=== PATIENT | female | born 2005 | race Caucasian/White ===

== ENCOUNTER 2024-09-20 12:27 | Emergency (ER) | payer OTHER, BC, SELFPAY ==
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
[2024-09-20 12:27] VITALS: BP 112/71; PULSE 90; RESP 16; TEMP 37.1; O2SAT 97
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
[2024-09-20] MEDS: IBUPROFEN 400 MG TABLET 800 MG PO (13:46)
--- OUTSIDE RECORDS SUMMARY | 2024-09-20 13:50 | XMS_ITS | Data Portability ---
Author Organization [place] [facility], zzDa rick Costa Address [address] [place] [address] Assessment No assessment recorded. Plan of Treatment Reminders Order Date Submit Date Provider Last Modified By Organization Details Last Modified Time Details Appointments None record ed. Lab None record ed. Referral None record ed. Procedures None record ed. Surgeries None record ed. Imaging None record ed. Medication Orders None record ed. Patient TargetsNo targets recorded. Patient InstructionsNo instructions recorded. Reason for Referral None Reported. Problems Name Problem SNOMED Code Status Onset Date Resolution Date Notes Provider Name and Address Organization Details Recorded Time Sore throat 185936891 Active Descriptio n: Sore throat Not Available [facility] 4 16:36:00 Irregular periods 56608975 Active Descriptio n: Irregular menses Not Available [facility] 4 16:36:00 Disturban ce of attention 68880210 Active 2023 Rosemarie Amaya MD [address], [place], [address] , [place] [facility] 4 22:36:37 Depressed mood 388460165 Active 2023 Rosemarie Amaya MD [address], [place], [address] , [facility] 4 22:36:48 Dizziness 588137359 Active 2023 Rosemarie Amaya MD [address], [place], [address] , [facility] 4 22:39:27 Generaliz ed headache 234078535 Active 2023 Rosemarie Amaya MD [address], [place], [address] , [facility] 4 22:39:31 Headache 67716512 Active 2023 Rosemarie Amaya MD [address], [place], [address] , [place] - [facility] 22:39:43 Dysmenorr kassi 924793488 Active 2023 Rosemarie Amaya MD [address], [place], [address] , [place] [facility] 22:42:41 Problem Notes None recorded. Medical Equipment None Reported. Allergies No known drug allergies Medications Name Sig Start Date Stop Date Status Note LastModified by Organization Details LastModified Time azithromy margarita 250 mg tablet TAKE 2 TABLETS BY MOUTH TODAY, THEN TAKE 1 TABLET DAILY FOR 4 DAYS DIRECTED 04/29 completed Not Available Not Available Not Available sulfameth oxazole 800 mg-trimet hoprim 160 mg tablet TAKE 1 TABLET BY MOUTH TWICE A DAY FOR 3 DAYS 04/29 completed Not Available Not Available Not Available amoxicill in 875 mg tablet 1 tablet Twice a day , Orally 2022 active Encounte r Date: 01/21/20 23 Status: 'Discont inued'; Not Available Not Available Not Available Claritin 1 tablet once daily active Encounte r Date: 09/28/19 Medicati onID: '[id number]'; Medicati onName: 'Clariti n'; ConceptT ype: 'NDC'; Status: 'Taking' ; Not Available Not Available Not Available multivita min 1 tablet Once a day , Orally active Encounte r Date: 09/28/19 Medicati onID: '[id number]'; Medicati onName: 'Multivi tamin'; ConceptT ype: 'NDC'; Status: 'Not-Jamir ing'; Not Available Not Available Not Available Vitals Date Recorded Body height Body mass index (BMI) Percentile per age and sex Body mass index (BMI) Body weight Body temperature Oxygen saturation Oxygen saturation in Arterial blood by Pulse oximetry Respiratory rate Heart rate Systolic blood pressure Diastolic blood pressure Provider Name and Address Organization Details Last Updated DateTime 4 165.1 cm 72 % 24 kg/m2 51203.7 4 g 97.6 [degF] 98 % 98 % 18 /min 72 /min 110 mm[Hg] 62 mm[Hg] Andria Cardona [place] - [facility] 15:31:08 Social History Question Answer Notes LastModified by Organizat ion Details LastModified Time Tobacco Smoking Status Never Smoker SocialHistor yQuestion: 'Tobacco Use/Smoking' ; SocialHistor yResponse: 'Are you a: nonuser'; Not Available [facility] 03/10/2024 04:03:40 What Is Your Level Of Alcohol Consumption? None SocialHistor yQuestion: 'Alcohol'; SocialHistor yResponse: 'Use Alcohol Currently No'; [email or web address] Information not available 03/10/2024 What Is Your Level Of Caffeine Consumption? Occasional [email or web address] Information not available 04/29/2024 How Much Tobacco Do You Chew? None [email or web address] Information not available 04/29/2024 In The 14 Days Before Symptom Onset, Have You Had Close Contact With A Laboratory-confi rmed COVID-19 While That Case Was Ill? No Information not available 04/29/2024 In The 14 Days Before Symptom Onset, Have You Had Close Contact With A Person Who Is Under Investigation For COVID-19 While That Person Was Ill? No [email or web address] Information not available 04/29/2024 Have You Been To An Area Known To Be High Risk For COVID-19? No Information not available 04/29/2024 What Is The Highest Grade Or Level Of School You Have Completed Or The Highest Degree You Have Received? DQ55470-3 [email or web address] Information not available 04/29/2024 Does Anyone Insult Or Talk Down To You? Rarely [email or web address] Information not available 04/29/2024 Does Anyone Physically Hurt You At Home? Never [email or web address] Information not available 04/29/2024 Does Anyone Scream Or Curse At You? Rarely [email or web address] Information not available 04/29/2024 Does Anyone Threaten/bully You With Harm? Never [email or web address] Information not available 04/29/2024 Sleep Habits I Try To Fall Asleep No Later Than 12:30 Every Night And Like To Get No Less Than 8 Hours [email or web address] Information not available 04/29/2024 Have You Ever Served In The ? No Information not available 04/29/2024 What Was The Date Of Your Most Recent Tobacco Screening? 04/29/2024 [email or web address] Information not available 04/29/2024 Do You Or Have You Ever Used Smokeless Tobacco? Never Used Smokeless Tobacco [email or web address] Information not available 04/29/2024 Do You Or Have You Ever Used Any Other Forms Of Tobacco Or Nicotine? No [email or web address] Information not available 04/29/2024 Sex: Unknown Functional Status None recorded. Mental Status None recorded. Family History Nothing Reported Notes:*Relative: Paternal Gr andmother*Problem: alive, lung cancerRelative: 'Paternal G M'; *Relative: Maternal Grandfather*Problem: aliveRelative: 'Maternal G F'; *Relative: Mother*Problem: alive, factor V Leiden *Relative: Father*Problem: alive *Relative: Maternal Grandmother*Problem: alive, hypothyroidism *Relative: Paternal Grandfather*Problem: aliveRelative: 'Paternal G F'; *Relative: Unspecified Relation*Problem: 1 brother(s) 2 sisters(s) - healthy Medical History No medical history recorded. Gynecological History Statement/Question Response Menses Monthly Y Sexually Active? Y Obstetrics History GPAL:G 0 P 0 0 0 0 Immunizations Vaccine Type Date Status Note Provider Nam e and Address Organization Details Recorded Time MMR 7 completed Not Available [facility] 02/10/2024 16:47:48 Hep B, adolescent or pediatric 7 completed Not Available [facility] 02/10/2024 16:47:48 Hep B, adolescent or pediatric 5 completed Not Available [facility] 02/10/2024 16:47:48 MMR 0 completed Not Available [facility] 02/10/2024 16:47:48 Hep B, adolescent or pediatric 5 completed Not Available [facility] 02/10/2024 16:47:49 IPV 5 completed Not Available [facility] 02/10/2024 16:47:49 IPV 5 completed Not Available [facility] 02/10/2024 16:47:49 IPV 9 completed Not Available [facility] 02/10/2024 16:47:49 IPV 5 completed Not Available [facility] 02/10/2024 16:47:49 Tdap 6 completed Not Available [facility] 02/10/2024 16:47:49 meningococcal MCV4, unspecified formulation 2 completed Not Available [facility] 02/10/2024 16:47:49 Influenza, split virus, quadrivalent, PF 2 completed Not Available [facility] 02/10/2024 16:47:49 DTaP, unspecified formulation 9 completed Not Available [facility] 02/10/2024 16:47:49 DTaP, unspecified formulation 5 completed Not Available [facility] 02/10/2024 16:47:50 DTaP, unspecified formulation 5 completed Not Available [facility] 02/10/2024 16:47:50 DTaP, unspecified formulation 5 completed Not Available [facility] 02/10/2024 16:47:50 varicella 0 completed Not Available [facility] 02/10/2024 16:47:50 varicella 7 completed Not Available [facility] 02/10/2024 16:47:50 pneumococcal polysaccharide PPV23 5 completed Not Available [facility] 02/10/2024 16:47:50 pneumococcal polysaccharide PPV23 5 completed Not Available [facility] 02/10/2024 16:47:50 pneumococcal polysaccharide PPV23 5 completed Not Available [facility] 02/10/2024 16:47:50 Hib (PRP-OMP) 7 completed Not Available [facility] 02/10/2024 16:47:51 Hib (PRP-OMP) 5 completed Not Available [facility] 02/10/2024 16:47:51 Hib (PRP-OMP) 5 completed Not Available [facility] 02/10/2024 16:47:51 Hep A, adult 7 completed Not Available [facility] 02/10/2024 16:47:51 meningococcal MCV4, unspecified formulation 6 completed Not Available [facility] 02/10/2024 16:47:51 DTaP, unspecified formulation 6 completed Not Available [facility] 02/10/2024 16:47:51 pneumococcal polysaccharide PPV23 7 completed Not Available [facility] 02/10/2024 16:47:51 Hep A, adult 6 completed Not Available [facility] 02/10/2024 16:47:51 Past Encounters Encounter ID Performer Location Encounter Start Date Encounter Closed Date Diagnosis/Indication Diagnosis SNOMED-CT Code Diagnosis ICD10 Code Diagnosis Note [id number] Rosemarie Amaya MD [facility] [address] [place] [address] 04/29/2024 15:27:13 04/29/2024 22:45:19 Disturbance of attention 56665943 R41.840 Endorses ADHD, depression and anxiety symptoms. Discussed natural ways to reduce stress and improve focus such as regular exercise, regular sleep pattern and regular diet. Discussed yoga, meditation . Recommende d counseling at school and neuro psych testing. Rolanda will discuss with parents and let me know if she would like to schedule testing here. Consider Atomoxetin e or treatment with SSRI and then stimulant therapy if testing confirms diagnoses. Depressed mood 822425057 F32.A see above Dizziness 741411800 R42 We discussed the importance of regular meals- do not skip breakfast and make sure getting plenty of protein in diet. If symptoms persist, will check labs. Headache 10032991 R51.9 Keep appointmen t with eye doctor and work on stress reduction. Adult [facility] th examination 444594648 Z00.00 Discussed importance of regular exercise and healthy diet.Recom mended gonorrhea/ chlamydia testing= patient declines at this time.She is not yet due for a pap smearPE 1 year Dysmenorrhea 258077924 N 94.6 She does not wish to start control. Recommende d 600 mg Ibuprofen every 6 hours 1-2 days prior to start of cycle or at first onset of cramps. Health Concerns Section Related Observation LastModified by Organization Detai ls LastModified Time None Recorded Concern Status LastModified by Organization Details LastModified Time None Recorded Advance Directives Directive None Recorded Payers Encounter Date Sequence Insurance Name Policy Number Policy Somers Covered Member ID Somers Member ID Guarantor Name 04/29/2024 [facility] - ALL PARTICIPANT - (MOVED-BILLED) [id number] Diony López [id number] Rolanda López Notes Date Note Type Note Provider Name and Address Organization Details Recorded Time 04/29/2024 text/html Here for routine PE and multiple concerns.She is not yet due for pap smear and declines gonorrhea/chlamydia testing.Immunizations : Flu shot not UTD.Has a lot of stress at college. [employer]- criminal justice/psych. GPA 3.0. To keep scholarship needs a 3.2. Professor accused her of using AI. Had to go through student grievance process. Had some financial stresses as well. Has kylie feeling more down and anxiosu. 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 Now, not as physically active. Easily distracted, forgets conversations. Reports a lot of procrastination and issues with time management. Adult ADHD rating positive.Hx recent headaches. Occurring once every other week= lasts for 3 days. Feels like pressure, sharp pain on sides. Has been working with eye doctor and needs to follow-up while home.Period cramps have been getting worse, using heating pads. 2 Ibuprofen every ever 8 hours. Does not want control. Is sexually active.Easily dizzy and feels like going to pass out. Does not eat breakfast and eats lunch at 1:15 PM. Sometimes gets dizzy in the shower, but all other episodes during this time frame in morning. Rosemarie Amaya MD [address], [place], [address], [place] [facility] 04/29/2024 22:45:04 OBGyn Episode No OBEpisode recorded.
--- OUTSIDE RECORDS SUMMARY | 2024-09-20 13:50 | XMS_ITS ---
Author Organization BILLING FACILITY [facility] Address [address] [place] [address] Care Team Providers Care Heel Builder Name Role Phone Rosemarie Amaya Primary Care Provider REASON FOR VISIT Breast concerns- lump-enlarged nipple Encounters Encounter Location Date Provider Diagnosis [facility] [address] [place] [address] 2023 Rosemarie Amaya PLAN OF TREATMENT No Information Progress Notes * Corwin LÓPEZB: 5 (19 yo F)Acc No.[id number]:2023 Patient: Edouard LÓPEZabella Provider: Rosemarie Amaya MD :2005 Age:18 Y Sex:Female Date:2023 Address:[address] [place], [place] [id number] Subjective: * Chief Complaints: * 1. Breast concerns- lump-enlarged nipple. * Medical History: Objective: Assessment: Plan: * Treatment: * Billing Information: * Visit Code: * Procedure Codes: * The named appointment provid er may or may not be the originator of this progress note, and it is not deemed complete until electronically signed by the appointment provider. Sign off status: Pending * Provider: Rosemarie Amaya MD Date: 2023
--- OUTSIDE RECORDS SUMMARY | 2024-09-20 13:50 | XMS_ITS | Patient Health Record ---
Author Organization BILLING FACILITY [employer] [facility] Address [address] [place] [address] Care Team Providers Care Wilton Weaver Name Role Phone Rosemarie Amaya Primary Care Provider Andria Tadeo [phone] ALLERGIES No Known Allergies RESULTS Component Value Reference Range Notes Rapid Strep Reviewed date:10/02/2023 09:19:41 AM Interpretation:Negative Performing Lab: Notes/Report: Negative Rapid Strep Negative Lot # [id number] [employer] M[employer]S Expiration 07/03/24 Influenza Rapid Reviewed date:10/02/2023 09:19:41 AM Interpretation:Negative Performing Lab: Notes/Report: Negative RAPID INFLUENZA Flu Flu A negative Flu B negative Lot # [id number] Expiration Date 06/04/25 Power Sewing [employer] M.S REASON FOR REFERRAL No Information MEDICATIONS Medication SIG (Take, Route, Frequency, Duration) Notes Start Date End Date Status Multivitamin - 1 tablet Orally Once a day Not-Taking Claritin 10 MG 1 tablet once daily Active Sulfamethoxazole-Trimetho prim 800-160 MG 1 tablet Orally Twice a day for 3 days 05/22/2023 Not-Taking Albuterol Sulfate HFA 108 (90 Base) MCG/ACT 1 puff as needed Inhalation every 4 hrs for 30 days 09/28/2023 Active Albuterol Sulfate HFA 108 (90 Base) MCG/ACT 2 puff as needed Inhalation every 4 hrs as needed for 90 days Active IMMUNIZATIONS Vaccine Route Administration Date Status Comme nts DTaP, unspecified (historical entry) Unknown 2004 Administered DTaP, unspecified (historical entry) Unknown 2004 Administered DTaP, unspecified (historical entry) Unknown 01/24/2005 Administered DTaP, unspecified (historical entry) Unknown 01/31/2006 Administered DTaP, unspecified (historical entry) Unknown 07/30/2008 Administered Fluzone Quad 0.5mil Prefill Syringe 6 months and older Unknown 04/05/2022 Administered Hep A, unspecified (historical entry) Unknown 01/31/2006 Administered Hep A, unspecified (historical entry) Unknown 08/25/2006 Administered Hep B, unspecified (historical entry) Unknown 2004 Administered Hep B, unspecified (historical entry) Unknown 2004 Administered Hep B, unspecified (historical entry) Unknown 08/25/2006 Administered Hib (PRP-OMP): PEDVAXHIB (2-24mos)(3 dose) Unknown 2004 Administered Hib (PRP-OMP): PEDVAXHIB (2-24mos)(3 dose) Unknown 2004 Administered Hib (PRP-OMP): PEDVAXHIB (2-24mos)(3 dose) Unknown 08/25/2006 Administered IPV, IM/SQ: IPOL (>/=6wks)(4 dose) Unknown 2004 Administered IPV, IM/SQ: IPOL (>/=6wks)(4 dose) Unknown 2004 Administered IPV, IM/SQ: IPOL (>/=6wks)(4 dose) Unknown 01/24/2005 Administered IPV, IM/SQ: IPOL (>/=6wks)(4 dose) Unknown 07/30/2008 Administered Meningococcal MCV4O: MENVEO (2 mos-55yrs) Unknown 01/04/2016 Administered Meningococcal MCV4O: MENVEO (2 mos-55yrs) IM Intramuscular 01/28/2022 Administered Patient tolerated injection well, no issues, bandaid applied. MMR, SQ: M-M-R II (>/=12mos)(2 dose w/diluent) Unknown 08/25/2006 Administered MMR, SQ: M-M-R II (>/=12mos)(2 dose w/diluent) Unknown 07/17/2009 Administered Pneumococcal, unspecified (historical entry) Unknown 2004 Administered Pneumococcal, unspecified (historical entry) Unknown 2004 Administered Pneumococcal, unspecified (historical entry) Unknown 01/24/2005 Administered Pneumococcal, unspecified (historical entry) Unknown 08/25/2006 Administered Tdap: BOOSTRIX (>/=10yrs)(1 dose) Unknown 01/04/2016 Administered Varicella, SQ: VARIVAX (>/=12mos)(2 dose) Unknown 08/25/2006 Administered Varicella, SQ: VARIVAX (>/=12mos)(2 dose) Unknown 07/17/2009 Administered SOCIAL HISTORY Tobacco Use: Social History Observation Description Date Details (start date - stop date) Never Smoker NA - NA Sex Assigned At : Social History Observation Description Sex Assigned At Unknown Tobacco Use/Smoking Question Answer Notes Are you a nonuser Alcohol Questionnaire Question Answer Notes Did you have a drink containing alcohol in the p ast year? No Points 0 Interpretation Negative PROBLEMS Problem Type ICD Code Onset Dates Problem Status W/U Status Risk SNOMED Code Notes Problem Sore throat (J02.9) Active confirmed 962338801 Problem Irregular menses (N92.6) Active confirmed 26977239 VITAL SIGNS Heart Rate 85 /min 09/28/2023 Oximetry 98 % 09/28/2023 Blood pressure diastolic 60 mm Hg 09/28/2023 Height 65in in 09/28/2023 Blood pressure systolic 92 mm Hg 09/28/2023 Encounters Encounter Location Date Provider Diagnosis [facility] [address] [place] [address] 09/28/2023 Andria Tadeo Sore throat J02.9 and COVID U07.1 [facility] [address] [place] [address] 04/29/2024 Rosemarie Amaya ASSESSMENTS Encounter Date Diagnosis Assessment Notes Treatment Notes Treatment Clinical Notes Section Notes 09/28/2023 Sore throat (ICD-10 - J02.9) Both flu and strep negative. Explained the sore throat is part of Covid and normal 09/28/2023 COVID (ICD-10 - U07.1) Discussed symptomatic treatment. Push fluids. Rest. Explained her symptoms were all coming from Covid and it may take a while to feel better. Let us know if symptoms aren't resolving or worsening in the next couple weeks. PLAN OF TREATMENT Future Test Test Name Order Date Rapid Strep 12/26/2022 Insurance Providers Payer Name Payer Address Payer Phone Subscriber Number Group Number Insured Name Patient Relationship to Insured Coverage Start Date Coverage End Date [facility] [id number] Diony López Child - Insured has Financial Responsibility MEDICAL (GENERAL) HISTORY Medical History History ICD Code Bronchospasm related to allergies
--- OUTSIDE RECORDS SUMMARY | 2024-09-20 13:50 | XMS_ITS ---
Author Organization [facility] Address [address] [place] [address] Care Team Providers Care Moisture Meter Reader Name Role Phone Rosemarie Amaya Primary Care Provider Andria Tadeo Unavailable [phone] ALLERGIES No Known Allergies RESULTS Component Value Reference Range Notes Rapid Strep Reviewed date:10/02/2023 09:19:41 AM Interpretation:Negative Performing Lab: Notes/Report: Negative Rapid Strep Negative Lot # [id number] Desizing Machine Offbearer MFidel Expiration 07/03/24 Influenza Rapid Reviewed date:10/02/2023 09:19:41 AM Interpretation:Negative Performing Lab: Notes/Report: Negative RAPID INFLUENZA Flu Flu A negative Flu B negative Lot # [id number] Expiration Date 06/04/25 Desizing Machine Offbearer MFidel REASON FOR VISIT possible strep MEDICATIONS Medication SIG (Take, Route, Frequency, Duration) [...] hrs as needed for 90 days Active SOCIAL HISTORY Tobacco Use: Social History Observation Description Date Details (start date - stop date) Never Smoker NA - NA Sex Assigned At : Social History Observation Description Sex Assigned At Unknown Tobacco Use/Smoking Question Answer Notes Are you a nonuser Alcohol Questionnaire Question Answer Notes Did you have a drink containing alcohol in the p ast year? No Points 0 Interpretation Negative VITAL SIGNS Heart Rate 85 /min 09/28/2023 Oximetry 98 % 09/28/2023 Blood pressure systolic 92 mm Hg 09/28/19 24 Blood pressure diastolic 60 mm Hg 024 Height 65in in 09/28/2023 Encounters Encounter Location Date Provider Diagnosis [facility] [address] [place] [address] 09/28/2023 Andria Tadeo Sore throat J02.9 and COVID U07.1 ASSESSMENTS Encounter Date Diagnosis Assessment Notes Treatment [...] the next couple weeks. PLAN OF TREATMENT Medication Medication Name Sig Start Date Stop Date Notes Albuterol Sulfate HFA 108 (9 0 Base) MCG/ACT 1 puff as needed Inhalation every 4 hrs for 30 days 09/28/2023 Treatment Notes Assessment Notes Sore throat Both flu and strep n egative. Explained the sore throat is part of Covid and normal COVID Discussed symptomati c treatment. Push fluids. Rest. Explained her symptoms were all coming from Covid and it may take a while to feel better. Let us know if symptoms aren't resolving or worsening in the next couple weeks. Progress Notes * Corwin JARRETTB: 5 (18 yo F)Acc No.[id number]:09/28/2023 Patient: Edouard JARRETTabella Provider: Andria Soni NP :2005 Age:18 Y Sex:Female Date:09/28/2023 Address:[address] [place], [place] [id number] Pcp:Rosemarie Amaya Subjective: * Chief Complaints: * 1. Possible strep. * HPI: *: Monday started with body aches, Phu went to health center at [facility], tested positive for Covid. Was also tested for strep and mono. Mom brings her in today because she is worried she now has strep because her throat hurts so badly. Taking OTC symptomatic meds. * ROS: General/Constitutional: General See HPI. ENT See HPI. Cardiovascular DENIES: , chest pain or tightness, irregular heartbeat, palpitations. Respiratory DENIES: , cough, shortness of breath, wheezing. Gastrointestinal DENIES: , abdominal pain, constipation, diarrhea, nausea, vomiting. Skin DENIES: , concerning/changing lesions, itching, rash. Psychiatric DENIES:, anxiety, depressed mood, sleep problems, substance abuse, suicidal thoughts. * Medical History: Bronchospasm related to allergies. * Family History: Father: alive. Mother: alive, factor V Leiden. Paternal G F: alive. Paternal G M: alive, lung cancer. Maternal G F: alive. Maternal G M: alive, hypothyroidism. 1 brother(s) , 2 sister(s) - healthy. . * Social History: Tobacco Use: Tobacco Use/Smoking Are you a nonuser Habits (drugs/alcohol/caffeine): Caffeine Caffeinated beverages Yes One- two cups of coffee per week. -Coffee (cups per day) three times a week -Soda/energy drinks (per day) one can once weekly Alcohol Use alcohol currently No Alcohol Questionnaire Did you have a drink containing alcohol in the past year? No Points 0 Interpretation Negative Drugs Have you used drugs other than for medical reasons? No * Medications: Taking Claritin 10 MG Tablet 1 tablet once daily , Taking Albuterol Sulfate HFA 108 (90 Base) MCG/ACT Aerosol Solution 2 puff as needed Inhalation every 4 hrs as needed , Not-Taking Multivitamin - Tablet 1 tablet Orally Once a day , Not-Taking Sulfamethoxazole-Trimethoprim 800-160 MG Tablet 1 tablet Orally Twice a day , Medication List reviewed and reconciled with the patient * Allergies: N.K.A. Objective: * Vitals: HR:85, Oxygen sat:98%, BP:92/60mm Hg, Ht:65in, Ht %: 61.13 %. * Examination: General Examination *: GENERAL APPEARANCE: Fatigued. HEAD: atraumatic, normocephalic. EYES: extraocular movements intact, conjunctiva clear, sclera non-icteric. EARS: Fluid behind each TM. SINUSES: non-tender. NOSE: erythematous/edematous, clear drainage. THROAT: Very erythematous, tonsils +2. LYMPH NODES: anterior cervical chain lymphadenopathy. HEART: S1/S2 normal, regular rate and rhythm, no murmurs, no rubs, no gallops. LUNGS: clear to auscultation, good air movement, no respiratory distress. SKIN: Warm and dry, good turgor, no rashes, no suspicious lesions. PERIPHERAL PULSES: 2+ throughout. Assessment: * Assessment: 1. COVID - U07.1 (Primary) 2. Sore throat - J02.9 Plan: * Treatment: 2. Sore throat LAB: Rapid Strep (Collection Date & Time - 09/28/2023 04:02 PM) Negative Value Reference Range Rapid Strep Negative * Lot # [id number] * Desizing Machine Offbearer Trey * Expiration 07/03/24 ?LAB: Influenza Rapid (Collection Date & Time - 09/28/2023 04:04 PM)?? Negative* Value Reference Range RAPID INFLUENZA Flu * Flu A negative * Flu B negative * Lot # [id number] * Expiration Date 06/04/25 * Desizing Machine Offbearer Trey Notes: Both flu and strep negative. Explained the sore throat is part of Covid and normal ? * Procedure Codes: 47208 STREP A ASSAY W/OPTIC, 04308 INFLUENZA ASSAY W/OPTIC * Billing Information: * Visit Code: 65534 Level 3 Est Patient Acute Care. * Procedure Codes: 94557 STREP A ASSAY W/OPTIC. 40781 INFLUENZA ASSAY W/OPTIC. * Sign off status: Completed true * Provider: Andria Soni NP Date: 09/28/2023 History and Physical Notes * HPI (History of Present Illness) Category Sub-Category Detail Notes Category Not es * Monday started with body aches, Monday went to health center at [facility], tested positive for Covid. Was also tested for strep and mono. Mom brings her in today because she is worried she now has strep because her throat hurts so badly. Taking OTC symptomatic meds. Examination Category Sub-Category Detail Notes Category Not es General Examination * GENERAL APPEARANCE: Fatigued HEAD: atraumatic, normocep halic EYES: extraocular movement s intact, conjunctiva clear, sclera non-icteric EARS: Fluid behind each TM NOSE: erythematous/[place] us, clear drainage THROAT: Very erythematous, t onsils +2 LYMPH NODES: anterior cervical ch ain lymphadenopathy SKIN: Warm and dry, good t urgor, no rashes, no suspicious lesions HEART: S1/S2 normal, regula r rate and rhythm, no murmurs, no rubs, no gallops LUNGS: clear to auscultatio n, good air movement, no respiratory distress PERIPHERAL PULSES: 2+ throughout SINUSES: non-tender
--- OUTSIDE RECORDS SUMMARY | 2024-09-20 13:50 | XMS_ITS ---
Author Organization [facility] Address [address] [place] [address] Care Team Providers Care Grey Washer Name Role Phone Rosemarie Amaya Primary Care Provider [phone] REASON FOR VISIT Annual Physical- City Dependant Encounters Encounter Location Date Provider Diagnosis [facility] [address] [place] [address] 04/29/2024 Rosemarie Amaya PLAN OF TREATMENT No Information Progress Notes * LÓPEZCorwinB: 5 (19 yo F)Acc No.[id number]:04/29/2024 Patient: Adolph LÓPEZlla Provider: Rosemarie Amaya MD :2005 Age:18 Y Sex:Female Date:04/29/2024 Address:[address] [place], [place] [id number] Subjective: * Chief Complaints: * 1. Annual Physical- City Dependant. * Medical History: Objective: Assessment: Plan: * Treatment: * Billing Information: * Visit Code: * Procedure Codes: * Sign off status: Completed true * Provider: Rosemarie Amaya MD Date: 04/29/2024
--- OUTSIDE RECORDS SUMMARY | 2024-09-20 13:50 | XMS_ITS | Continuity of Care Document ---
Author Organization [facility] Address [address] [place] [address] Phone Care Team Providers Care Wallpaper Remover Steam Name Role Phone Mar GODINEZ, Nisha Unavailable Unavaila ble Allergies, Adverse Reactions, Alerts Substance Reaction Status Criticality No Known Allergies Active No Inform ation No Known Allergies Active No Inform ation Medications Medication Instructions Dosage Effective Dates (start - stop) Status Comments Zithromax 200 mg/5 mL Oral Susp 3 ml po daily x 5 days - Active Zithromax 200 mg/5 mL Oral Susp 3 ml po daily x 5 days - No Longer Active Procedures Procedure Date Offic/outpt E&m Estab Low-mod 8 Offic/outpt E&m [facility] Low-mod 7 Offic/outpt E&m New Low-mod 07 Advance Directives Directive Yes / No Effective Date File Name No Information Encounters Encounter Description Practice Location Reason(s) For Visit Diagnoses Date Provider Providers Copied on Encounter Offic/outpt E&m Estab Low-mod [facility], [address], [place], [place], [id number], [place] tel:[phone] [facility] CM congestion (chief complaint)co ugh (chief complaint)si nus infection (chief complaint) Bronchitis, Acute Mar Cameron. [address], [place], [address], . tel:[phone] Referring Provider: Nisha Manuel MD, [address], [place], [address]. tel:[phone] Offic/outpt E&m [facility], [address], [place], [place], [id number], tel:[phone] [facility] CM sore throat, cough, fever (chief complaint) UPPER RESP INF, ACUTE UNSPEC Mar Cameron. [address], [place], [address], . tel:[phone] Referring Provider: Nisha Manuel MD, [address], [place], [address]. tel:[phone] Offic/outpt E&m [address], [address], [place], [place], [id number], tel:[phone] [facility] CM cough (chief complaint) COUGH Mar Cameron. [address], [place], [address], . tel:[phone] Referring Provider: Nisha Manuel MD, [address], [place], [address]. tel:[phone] Family History Family Member Type Diagnosis Age At Onset No Information Payers Payer name Insurance type Covered republican ID Authoriza tion(s) No Information Social History Type Description Quantity Date Captured Comments Sex Female Smoking Status No Information Vital Signs Date / Time: Height Weight BMI Pulse Rate Blood Pressure Temperature Respiratory Rate Body Surface Area Head Circumference Head Circ. Percentile Wt./Marc. Percentile BMI percentile Pulse Ox Inhaled Ox 11:03 AM 14.550 kg (32.00 lbs) 100 /min 97.00 F Chief Complaint And Reason For Visit From encounter dated '07/03/2007 10:58'. congestion (chief complaint) cough (chief complaint) sinus infection (chief complaint) Reason For Referral Reason For Referral No Information History Of Present Illness Encounter Date Complaint History Of Prese nt Illness cough sinus infection congestion sore throat, cough, fever Patien t c/o nasal congestion, cough and fever x 2 days, friend with strep throat. Mom wants to make sure she didn't come down with strep throat, no vomiting, no diarrhea, tolerating POs well. Normal urine output and normal activity level per mom cough Functional Status Date Functional Assessmen t No Information Instructions Date Instruction Additional Infor mation No Information Assessments Type Assessment Date No Information Patient Care Teams Name Effective Dates (start - stop) Status Members No Information
--- OUTSIDE RECORDS SUMMARY | 2024-09-20 13:50 | XMS_ITS | Clinical Summary ---
Author Organization [facility] Address [address] [place] [address] Phone Care Team Providers Care Director Community Health Nursing Name Role Phone Araseli Davis MD Primary Care Provider [phone] Allergies No known active allergies Medications Multiple Vitamin (DAILY-VITAMIN PO) Take 1 Tab by mouth daily. Active albuterol (ProAir HFA) 108 (90 Base) MCG/ACT Aerosol Solution take 1 Puff by inhalation every 6 hours as needed for Wheezing. 8.5 g 2 Active Active Problems Problem Noted Date Diagnosed Date Hematuria 03/22/2021 Immunizations Immunization Administration Dates Next Due DTAP VACCINE, UNSPECIFIED FORMULATION ,01/31/2006,01/24/2005,11/29,2004 Hepatitis A Vaccine,unspecif ied Formulation 08/25/2006,01/31/2006 Hepatitis B Vaccine,unspecif ied Formulation 08/25/2006,2004,2004 Hib Vaccine,unspecified Formulation 08/25/2006,0 2004,2004 Influenza Vaccine, Quadrivalent, PF 03/28/2020,0 07/06/2018,03/04/2016 Influenza Vaccine,unspecifie d Formulation 03/18/2011,03/03/2008 MMR Vaccine 07/17/2009,08/25/2006 Meningococcal MCV4O 01/04/2016 PUR MENINGOCOCCAL MCV4O 01/04/2016 PUR TDAP 7+ YRS IM 01/04/2016 Pneumococcal Vaccine, Unspec ified Formulation 08/25/2006,01/24/2005,2004,09/20 Polio Vaccine,unspecified Formulation ,01/24/2005,2004,09/20 TDAP Vaccine 01/04/2016 Varicella Vaccine Live 07/17/2009,08/25/2006 Family History Medical History Relation Name Comments No Known Problems Brother Darian No Known Problems Father Diony No Known Problems Mother No Known Problems Sister 1 Cecilia Relation Name Status Comments Brother Darian Alive Father Diony Alive Mother Alive Sister 1 Cecilia Alive Sister 2 Adri Alive Social History Tobacco Use Types Packs/Day Years Used Date Smoking Tobacco: Never Smokeless Tobacco: Never Tobacco Cessation:Counseling Given: Yes PHQ-2 Answer Date Recorded Total Score - Questions 1-9 0 05/06 Comments No Sex and Gender Information Value Date Recorded Sex Assigned at Not on file Legal Sex Female 3:18 AM CDT Gender Identity Not on file Sexual Orientation Not on file Last Filed Vital Signs Vital Sign Reading Time Taken Comments Blood Pressure 100/68 06/02/2021 11:01 AM RECEIVING DOCK CHECKER Pulse 76 06/02/2021 11:01 AM RECEIVING DOCK CHECKER Temperature 36.4 C (97.6 F) 06/02/2021 11:01 AM RECEIVING DOCK CHECKER Respiratory Rate 18 06/02/2021 11:01 AM RECEIVING DOCK CHECKER Oxygen Saturation 99% 06/02/2021 11:01 AM RECEIVING DOCK CHECKER Inhaled Oxygen Concentration - - Weight 56.9 kg (125 lb 6.4 oz) 06/02/2021 11:01 AM RECEIVING DOCK CHECKER Height 166.4 cm (5' 5.5 ) 06/02/2021 11:01 AM CS T Body Mass Index 20.55 06/02/2021 11:01 AM RECEIVING DOCK CHECKER Plan of Treatment Health Maintenance Due Date Last Done Comments Hepatitis C Virus (HCV) Screening 2004 Human Papillomavirus (HPV) Immunization (1 - 3-dose series) 2019 Meningococcal B Immunization (1 of 2 - Standard) 2020 Influenza Immunization (#1) 2024 10/0 07/2020, 03/28/2020, 07/06/2018, Additional history exists SARS-COV-2 Immunization ( season) 2024 DTaP/Tdap/Td Immunization (8 - Td or Tdap) 01/03/2026 01/04/2016, 01/04/2016, 07/30/2008, Additional history exists Respiratory Syncytial Virus (RSV) Immunization (Adult) (1 - 1-dose 75+ series) 2079 Hepatitis A Immunization Discontinued 08/25/2006, 01/04 Hepatitis B Immunization Completed 007, 2004, 2004 Pneumococcal Immunization Combined Aged Out 08/25/2006, 01/24/2005, 2004, Additional history exists No longer eligible based on patient's age to complete this topic Measles Mumps Rubella (MMR) Immunization Discontinued 07/17/2009, 08/25/2006 Varicella Immunization Discontinued 07/17/2009, 2006 Meningococcal Immunization (ACWY) Aged Out 01/04/2016, 01/04/2016 No longer eligibl e based on patient's age to complete this topic Rotavirus Immunization Aged Out No lo nger eligible based on patient's age to complete this topic Insurance [facility] [place] [phone] [facility] [[email or web address]] Care Teams Director Community Health Nursing Relationship Specialty Start Date End Date Araseli Davis MD [address] [place] [address] PCP - General Family Medicine 07/05/17
--- OUTSIDE RECORDS SUMMARY | 2024-09-20 13:50 | XMS_ITS | Continuity of Care Document ---
Author Organization [facility] Address [address] [place] [address] Phone Care Team Providers Care Lokie Engineer Name Role Phone Mariah GODINEZ, Clark Unavailable Unavailable Medications Medication Instructions Dosage Effective Dates (start - stop) Status Comments cephalexin 250 mg/5 mL Oral Susp 7.5 ml bid x 10 days. - Active Triamcinolone Acetonide 0.1 % Topical Cream apply by TOPICAL route 2 times every day a thin film to the affected skin areas - Active SEPTRA 200-40MG/5ORAL SUSP 1 1/2 tsp bid x 10 days - Active Procedures Procedure Date Ua Dip Stik/tablt;wo Micro Non 12 Audiogram Visual Acuity Well Visit (10-13) Medication Admin Vaccine against influenza Office Exam - Limited Ua Dip Stik/tablt;wo Micro Non 11 Audiogram Visual Acuity Well Visit (10-13) Ua Dip Stik/tablt;wo Micro Non 10 Audiogram Visual Acuity Well Visit (10-13) Medication Admin Aangiyzuo-[id number], All Formulations Medication Admin Medication Admin Oxjkiivic-[id number], All Formulations Vaccine against MMR Vaccine against Varicella Medication Admin Vaccine against influenza Office Exam - Limited Ua Dip Stik/tablt;wo Micro Non [address]; Spun Microhematocrit Medication Admin Medication Admin Vaccine against DTap Vaccine against poliomyelitis 9 Audiogram Visual Acuity Office Exam - Limited Immun Admin <8yrs; SQ, IM Flu Vir Vacc-split 3 Yr & > Im 08 Offic/outpt E&m Estab Low-mod 8 Offic/outpt E&m Estab Low-mod 8 Offic/outpt E&m Estab Low-mod 8 Offic/outpt E&m New Mod-hi 45 8 Ua Dipstik/tablet; Non-auto W/ 08 Cult Bacterial Urin; Prabhu [place] 08 Advance Directives Directive Yes / No Effective Date File Name No Information Encounters Encounter Description Practice Location Reason(s) For Visit Diagnoses Date Provider Providers Copied on Encounter [facility] [address] [address], [place], [place], [id number], tel:[phone] Clark Lemus MD No Information 3 Mariah Rodas. Retired, [place], [place], [id number], [place]. tel:[phone] Referring Provider: Kayla Lin MD, [address] [facility] [address], [place], [address] . tel:[phone] Well Visit (10-13) [facility] [address], [id number], tel:[phone] Pediatrics well visit (chief complaint) No Information 2 Riley Garza. [facility] [address], [place], [place], [id number], . tel:[phone] Referring Provider: Kayla Lin MD, [address] [place] [address], [place], [address] . tel:[phone] [facility] [address], [id number], [place] tel:[phone] Pediatrics No Information 1 Riley Garza. [address] [place] [address], [place], [place], [id number], [place]. tel:[phone] Referring Provider: Kayla Lin MD, [address] [place] [address], [place], [address] . tel:[phone] Office Exam - Limited [facility] [address], [place], [place], [id number], tel:[phone] Pediatrics possible spider bite on L leg (chief complaint) Cellulitis 1 Riley Garza. [address] [address], [place], [place], [id number], . tel:[phone] Referring Provider: Kayla Lin MD, [address] [place] [address], [place], [address] . tel:[phone] Well Visit (5-11) [facility] [address], [id number], [place] tel:[phone] Pediatrics well child (chief complaint) No Information 1 Riley Garza. [address] [address], [place], [place], [id number], [place]. tel:[phone] Well Visit (5-11) [facility] [address], [place], [place], [id number], [place] tel:[phone] Pediatrics well visit (chief complaint) No Information 0- 0 Riley Garza. [address] [address], [place], [id number], [place]. tel:[phone] [facility] [address] [address], [place], [id number], [place] tel:[phone] Pediatrics No Information 0 Riley Garza. [address] [address], [place], [place], [id number], [place]. tel:[phone] [facility] [address], [id number], [place] tel:[phone] Pediatric[facility] No Information 0 Riley Garza. [address] [address], [place], [id number], [place]. tel:[phone] [facility] [address] [address], [place], [id number], [place] tel:[phone] Pediatric[facility] No Information 9 Riley Garza. [address] [address], [place], [place], [id number], [place]. tel:[phone] Office Exam - Limited [facility] [address] [address], [place], [id number], [place] tel:[phone] Pediatrics rash on stomach (chief complaint) re ringworm (chief complaint) DERMATOPHYTOSIS UNSPECIFIED SITEDERMATITIS,C ONTACT & OTH ECZEMA 9 Riley Garza. [address] [address], [place], [place], [id number], [place]. tel:[phone] [facility] [address], [id number], [place] tel:[phone] Pediatrics well visit (chief complaint) DERMATOPHYTOSIS UNSPECIFIED SITE 9 Riley Garza. [address] [address], [place], [id number], [place]. tel:[phone] Office Exam - Limited [facility] [address], [id number], [place] tel:[phone] Pediatrics rash on right leg (chief complaint) DERMATITIS,CONTA CT & OTH ECZEMA 0 9 Mariah Rodas. Retired, [place], [id number], [place]. tel:[phone] [facility] [address] [address], [place], [id number], [place] tel:[phone] Pediatrics No Information 9 Haritha GODINEZ Tisha. [facility] [address], [id number], [place]. tel:[phone] Offic/outpt E&m Estab Low-mod [facility] [address], [id number], [place] tel:[phone] Pediatrics Possible spider bites on arm & back (chief complaint) re toe (chief complaint) IMPETIGO 8 Riley Garza. [address] [address], [place], [place], [id number], [place]. tel:[phone] Offic/outpt E&m Estab Low-mod [facility] [address], [id number], [place] tel:[phone] Pediatric[facility] No Information 8 Haritha GODINEZ Tisha. [address] [address], [place], [id number], [place]. tel:[phone] Offic/outpt E&m Estab Low-mod [facility] [address], [id number], [place] tel:[phone] Pediatrics No Information 8 Haritha GODINEZ Tisha. [address] [facility] [address], [place], [place], [id number], [place]. tel:[phone] Offic/outpt E&m New Mod-hi 45 [facility] [address] [facility] [address], [place], [place], [id number], [place] tel:[phone] Pediatrics No Information 8 Haritha GODINEZ Tisha. [address] [facility] [address], [place], [place], [id number], [place]. tel:[phone] Family History Family Member Type Diagnosis Age At Onset No Information Immunizations Vaccine Date Status Comments Influenza virus vaccine, intranasal administered Note: Physician appr oves immunizations to be given.-Nessa Fitch ; Source: New Immunization Record Oeyyzuwzs-[id number], All Formulations administered Source: New Immuniza tion Record Dhdvbcebu-[id number], All Formulations administered Source: New Immuniza tion Record Varicella administered Source: New Imm unization Record MMR administered Source: New Imm unization Record Flu (split) (3 yrs or older) administered Source: New Immunization Record Polio, inactivated (IPV) administered Samina rce: New Immunization Record DTaP(younger than 7 yrs) administered Samina rce: New Immunization Record Flu (split) (3 yrs or older) administered Source: New Immunization Record hep A (ped/adol, 2 dose) administered Samina rce: New Immunization Record varicella administered Source: New Imm unization Record MMR administered Source: New Imm unization Record hep B (ped/adol, 3 dose) administered Samina rce: New Immunization Record pneumo (under 5) (PCV7) administered Sour ce: New Immunization Record HIB - unspecified administered Note: Set procedure code where blank for historical non-specific HIB entry. ; Source: New Immunization Record hep A (ped/adol, 2 dose) administered Samina rce: New Immunization Record DTaP administered Source: New Imm unization Record pneumo (under 5) (PCV7) administered Sour ce: New Immunization Record DTaP administered Source: New Imm unization Record polio, inactivated (IPV) administered Samina rce: New Immunization Record hep B (ped/adol, 3 dose) administered Samina rce: New Immunization Record pneumo (under 5) (PCV7) administered Sour ce: New Immunization Record HIB - unspecified administered Note: Set procedure code where blank for historical non-specific HIB entry. ; Source: New Immunization Record DTaP administered Source: New Imm unization Record polio, inactivated (IPV) administered Samina rce: New Immunization Record hep B (ped/adol, 3 dose) administered Samina rce: New Immunization Record pneumo (under 5) (PCV7) administered Sour ce: New Immunization Record HIB - unspecified administered Note: Set procedure code where blank for historical non-specific HIB entry. ; Source: New Immunization Record DTaP administered Source: New Imm unization Record polio, inactivated (IPV) administered Samina rce: New Immunization Record Payers Payer name Insurance type Covered green party ID Authoriza tion(s) [facility] ([facility]) CI [id number] Social History Type Description Quantity Date Captured Comments Sex Female Smoking Status No Information Chief Complaint And Reason For Visit No Information Reason For Referral Reason For Referral No Information History Of Present Illness Encounter Date Complaint History Of Prese nt Illness well visit 1st grade. Doing well. No problems. possible spider bite on L leg pr obable mosquito bites. well child Doing well in ki nder. Dry noc. Nl stools. well visit [place] been [place]. 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 rash on stomach rash on back of thigh almost clear with TAC cream (did not use Lamisil) re ringworm well visit rash on leg pers ists in spite of lotrimin tid. rash on right leg Pt with rash o n leg x 3 wks, now enlarging re toe Possible spider bites on arm & b ack Noticed 3 bites on back and next day 1 on arm. Not itchy Functional Status Date Functional Assessmen t No Information Instructions Date Instruction Additional Infor mation No Information Assessments Type Assessment Date No Information Patient Care Teams Name Effective Dates (start - stop) Status Members No Information
--- OUTSIDE RECORDS SUMMARY | 2024-09-20 13:50 | XMS_ITS | Clinical Summary ---
Author Organization [facility] Address [address] [place] [address] Care Team Providers Care Cofferdam Construction Supervisor Name Role Phone None, Provider MD Primary Care Provider Unavaila ble Allergies No known active allergies Medications loratadine 10 MG tabletIndication s:Acute bronchitis, unspecified organism Take 1 tablet (10 mg total) by mouth daily as needed (Nasal congestion). 20 tablet 1 Active albuterol sulfate HFA 108 (90 Base) MCG/ACT inhaler INHALE ONE PUFF BY MOUTH EVERY 6 HOURS NEEDED FOR WHEEZING 2 Active Active Problems No known active problems Social History Tobacco Use Types Packs/Day Years Used Date Smoking Tobacco: Never Smokeless Tobacco: Never Tobacco Cessation:Counseling Given: No Alcohol Use Standard Drinks/Week Comments Never 0 (1 standard drink = 0.6 oz pur e alcohol) PHQ-2 Answer Date Recorded PHQ-2 Score - If the patient scores above 3, please move on to questions 3-9 0 02/16/2022 Comments No Sex and Gender Information Value Date Recorded Sex Assigned at Not on file Legal Sex Female 7:09 PM [employer] Gender Identity Not on file Sexual Orientation Not on file Last Filed Vital Signs Vital Sign Reading Time Taken Comments Blood Pressure 98/52 02/16/2022 1:21 PM CDT Pulse 77 02/16/2022 1:21 PM CDT Temperature 37.1 C (98.7 F) 02/16/2022 1:21 PM CDT Respiratory Rate 12 02/16/2022 1:21 PM CDT Oxygen Saturation 97% 02/16/2022 1:21 PM CDT Inhaled Oxygen Concentration - - Weight 54.4 kg (120 lb) 02/16/2022 1:21 PM CDT P t reported Height 165.1 cm (5' 5 ) 02/16/2022 1:21 PM CDT P t reported Body Mass Index 19.97 02/16/2022 1:21 PM CDT Plan of Treatment Health Maintenance Due Date Last Done Comments Annual Physical 2007 HPV Vaccines (1 - 3-dose series) 2019 Meningococcal B Vaccine (1 of 2 - Standard) 2020 Hepatitis C 2022 COVID-19 Vaccine (1 - 2023- season) 2024 DTaP, Tdap and Td Vaccines (7 - Td or Tdap) 01/03/2026 01/04/2016, 07/30/2008, 01/31/2006, Additional history exists Hepatitis B Vaccines Completed 08/25/2006, 2004, 2004 Pneumococcal Vaccine: Pediatrics (0 to 5 Years) and At-Risk Patients (6 to 49 Years) Aged Out 08/25/2006, 01/24/2005, 2004, Additional history exists No longer eligible based on patient's age to complete this topic Meningococcal Vaccine Aged Out 01/04/2016 No charles enma eligible based on patient's age to complete this topic RSV Immunizations Under 20 Months Aged Out No longer eligible based on patient's age to complete this topic Insurance [facility] [place] [address] [place] [id number] [facility] Care Teams [employer] Construction Supervisor Relationship Specialty Start Date End Date None, Provider, PCP - General 04/26/21
== END 2024-09-20 14:08 | disposition home or self-care (01) ==
PROVIDERS: Emergency Provider Physician Assistant
DX: S49.92XA Unspecified injury of left shoulder and upper arm, initial encounter (principal); S69.92XA Unspecified injury of left wrist, hand and finger(s), initial encounter; V43.52XA Car driver injured in collision with other type car in traffic accident, initial encounter
CPT/HCPCS: 73000; 73030; 73110; 99284; A9270

== ENCOUNTER 2025-01-23 08:38 | Emergency (ER) | payer BC, SELFPAY ==
--- NOTE | 2025-01-23 09:03 | ED.SKABFB ---
HPI - Skin/Abscess/Foreign Bdy General Chief complaint: Skin/Abscess/Foreign Body Stated complaint: Infected Finger Time Seen by Provider: 01/23/25 08:54 Source: patient and RN notes reviewed Mode of arrival: ambulatory Limitations: no limitations History of Present Illness HPI narrative: Patient presents today complaining of a ruptured blister and persistent redness to the dorsum of the right 5th MCP x9 days. States the area continues to grow since onset. Reports some mild pain and itchiness as well. She has tried Neosporin and Vaseline without improvement. States the area started out as a small paper cut, then appeared to look like a blister or bug bite, then ruptured into a flat lesion. Related Data Allergies Allergy/AdvReac Type Severity Reaction Status Date / Time No Known Allergies Allergy Verified 01/23/25 08:50 PMF Comments At time of signature, I have reviewed and agree with nursing past medical, surgical, social and family history unless otherwise noted. Please see nursing chart for further information. There is no relevant family history pertinent to the presenting complaint Exam Narrative: GENERAL: Well-appearing, well-nourished, and in no acute distress. HEAD: Normocephalic, atraumatic. EYES: EOMI. No redness or drainage. Conjunctivae normal. ENT: Mucous membranes pink and moist. NECK: Normal AROM. CHEST: No respiratory distress. EXTREMITIES: Right hand: 1 cm round area of erythema and peeling skin to the dorsum of the 5th MCP. Small area of honey crusting to the center. No edema or active drainage. Distal sensation intact. Capillary refill normal. Full range of motion of the finger. SKIN: Warm, dry, no rash. Capillary refill normal. Normal skin turgor. NEURO: No focal deficits. Alert and oriented x3. Gait steady. PSYCH: Normal affect. No signs of depression or anxiety. Course Course Level of Care: Express Care Visit Vital Signs Vital signs: Vital Signs Temperature 98.7 F 01/23/25 09:06 Pulse Rate 89 01/23/25 09:06 Respiratory Rate 18 01/23/25 09:06 Blood Pressure 106/58 L 01/23/25 09:06 Pulse Oximetry 100 01/23/25 09:06 Temperature 98.7 F 01/23/25 09:06 Pulse Rate 89 01/23/25 09:06 Respiratory Rate 18 01/23/25 09:06 Blood Pressure 106/58 L 01/23/25 09:06 Pulse Oximetry 100 01/23/25 09:06 Reviewed MDM - Skin/Abscess/Foreign Bdy MDM Narrative Medical decision making narrative: 19-year-old female patient presents today with a wound to the dorsum of her right 5th MCP that has been present and growing for the past 9 days. Reports some pain and itchiness. She has tried some Neosporin or Vaseline without improvement. Upon exam, patient has an erythematous, approximately 1 cm flat wound with layers of peeling skin with small areas of honey crusting consistent with impetigo. Patient will be treated with oral Keflex and topical mupirocin. Vital signs stable. Anticipatory guidance given. Differential Diagnosis Differential diagnosis: Likely abscess of skin or subcutaneous tissue, cellulitis, insect bites, impetigo and contact dermatitis Critical Care Time Critical Care Time Critical Care Time: No Discharge Plan Discharge Clinical Impression: Hand lesion, Impetigo Patient Disposition: Home Condition: Stable Instructions: Antibiotic Form, Impetigo (ED) Additional Instructions: Please take the Keflex and use the mupirocin as directed. Wash your wound daily with soap and water. Follow-up with your PCP next week if symptoms are not improving. Patient Language: Cypriot Prescriptions: New cephalexin 500 mg capsule 500 mg PO Q6H 7 Days Qty: 28 0RF mupirocin 2 % ointment 1 applic topical BID 7 Days Qty: 22 0RF Follow-up/Referrals: PHYSICIAN,CUSTOM SHOE DESIGNER AND MAKER [Primary Care Provider, Internal Medicine] Time of Disposition: 09:07
[2025-01-23 09:06] VITALS: BP 106/58; PULSE 89; RESP 18; TEMP 37.1; O2SAT 100
== END 2025-01-23 09:11 | disposition home or self-care (01) ==
PROVIDERS: Emergency Provider Nurse Practitioner
DX: L01.00 Impetigo, unspecified (principal)
CPT/HCPCS: 99213; G0463